=== PATIENT | female | born 1985 | race African-American/Black ===

== ENCOUNTER → 2018-12-24 | Outpatient (CLI) | payer OTHER ==
[2018-12-24 13:15] LABS: BASO # 0.1 10^3/uL (0.0-0.2); BASO % 0.7 % (0.0-1.0); EOS # 0.3 10^3/uL (0.0-0.50); EOS % 2.7 % (0.0-3.0); HEMATOCRIT 37.5 % (36.0-47.0); HEMOGLOBIN 12.5 g/dl (12.0-15.5); LYMPH # 1.8 10^3/uL (1.5-4.5); LYMPH % 17.1 % (24.0-44.0); MEAN CORPUSCULAR HEMOGLOBIN 30.6 pg (27.0-33.0); MEAN CORPUSCULAR HGB CONC 33.3 g/dl (32.0-36.5); MEAN CORPUSCULAR VOLUME 91.9 fl (80.0-96.0); MONO # 0.7 10^3/uL (0.0-0.8); MONO % 6.9 % (0.0-5.0); NEUTROPHILS # 7.4 10^3/uL (1.8-7.7); NEUTROPHILS % 72.1 % (36.0-66.0); PLATELET COUNT, AUTOMATED 295 10^3/uL (150-450); RED BLOOD COUNT 4.08 10^6/uL (4.00-5.40); WHITE BLOOD COUNT 10.2 10^3/uL (4.0-10.0)
[2018-12-24 13:59] LABS: HEPATITIS C VIRUS ABY INDEX 0.1 INDEX (<0.8); HIV 1&2 SCREEN CENTAUR NEGATIVE (NEGATIVE); RUBELLA IgG QUALITATIVE IMMUNE (IMMUNE)
[2018-12-24 15:00] LABS: CHLAMYDIA DNA AMPLIFICATION NEGATIVE (NEGATIVE); GC DNA AMPLIFICATION NEGATIVE (NEGATIVE)
== END ==
LOC: M SMT 09:50
PROVIDERS: ATTEND Obstetrics & Gynecology
DX: Z34.81 Encounter for supervision of other normal pregnancy, first trimester (principal); Z3A.00 Weeks of gestation of pregnancy not specified

== ENCOUNTER → 2019-01-22 | Outpatient (CLI) | payer OTHER | LOC: M SMT 13:20 | PROVIDERS: ATTEND Advanced Practice Midwife | DX: O09.511 Supervision of elderly primigravida, first trimester (principal) ==

== ENCOUNTER → 2019-03-04 | Outpatient (CLI) | payer OTHER ==
[~2019-03-04] MED LIST: NEXI20CA PO; PRENTAB9 PO; ZYRTTAB8 PO
--- NOTE | 2019-03-05 04:12 | REP ---
Clinical: Anatomical evaluation. Comparison: None . Findings: Examination demonstrates a single live intrauterine in breech presentation. motion is identified by technologist. Placenta is noted posterior and grade zero without evidence for placenta previa or abruption. Amniotic fluid volume is normal. Cervix measures 5.9 cm in length and appears closed. No evidence for nuchal cord. Gestational age by LMP 19 weeks 3 days with JEANNETTE 07/26/2019 . Gestational age by current measurements 19 weeks 2 day with JEANNETTE these 07/27/2019 . FHR equals 168 beats per minute. BPD 4.4 cm 19 weeks 2 days HC 16.5 cm 19 weeks 1 day AC 13.6 cm 19 weeks 0 days FL 3.1 cm 19 weeks 3 days HL 3.0 cm 19 weeks 5 days HC/AC ratio 1.21 Estimated weight 281 grams ( 40th percentile). Anatomical assessment demonstrates normal structures including cranium, choroid plexus, cavum, cerebellum/posterior fossa, facial features, lungs, four-chamber heart/ventricular outflow tracts, diaphragm, stomach, cord insertion/three-vessel cord, kidneys/bladder, spine, and extremities. Impression: Single live intrauterine in breech presentation demonstrating appropriate interval growth. Anatomical assessment is complete and normal. No gross abnormalities are identified. Electronically Signed by Vinicius Winters MD 03/05/2019 04:03 A
== END ==
LOC: M RAD 11:27
PROVIDERS: ATTEND Advanced Practice Midwife
DX: O09.512 Supervision of elderly primigravida, second trimester (principal); Z3A.19 19 weeks gestation of pregnancy

== ENCOUNTER → 2019-04-22 | Outpatient (CLI) | payer OTHER ==
[2019-04-22 13:50] LABS: HEMATOCRIT 34.7 % (36.0-47.0); HEMOGLOBIN 11.3 g/dl (12.0-15.5); MEAN CORPUSCULAR HEMOGLOBIN 31.1 pg (27.0-33.0); MEAN CORPUSCULAR HGB CONC 32.6 g/dl (32.0-36.5); MEAN CORPUSCULAR VOLUME 95.6 fl (80.0-96.0); PLATELET COUNT, AUTOMATED 293 10^3/uL (150-450); RED BLOOD COUNT 3.63 10^6/uL (4.00-5.40); WHITE BLOOD COUNT 13.5 10^3/uL (4.0-10.0)
== END ==
LOC: M SMT 09:14
PROVIDERS: ATTEND Advanced Practice Midwife
DX: O09.512 Supervision of elderly primigravida, second trimester (principal); Z3A.00 Weeks of gestation of pregnancy not specified

== ENCOUNTER → 2019-04-26 | Outpatient (CLI) | payer OTHER | LOC: M LAB 07:57 | PROVIDERS: ATTEND Advanced Practice Midwife | DX: R73.02 Impaired glucose tolerance (oral) (principal) ==

== ENCOUNTER → 2019-06-24 | Outpatient (REF) | payer OTHER | LOC: M SFHCWAGY 13:09 | PROVIDERS: ATTEND Advanced Practice Midwife | DX: Z3A.35 35 weeks gestation of pregnancy (principal) ==

== ENCOUNTER 2019-07-14 12:25 | Outpatient (CLI) | payer OTHER ==
[~2019-07-14] VITALS: Ht 162.6 cm; Wt 83.5 kg
[2019-07-14 12:46] VITALS: BP 123/73
[2019-07-14] MEDS ORDERED: ZYRTTAB8 PO (12:58)
[2019-07-14] MEDS ORDERED: PRENTAB9 PO (12:58)
[2019-07-14] MEDS ORDERED: NEXI20CA PO (12:58)
[2019-07-14 13:44] VITALS: BP 112/76
[2019-07-14 16:18] VITALS: BP 120/67
[2019-07-14 17:31] VITALS: BP 119/81
== END 2019-07-14 17:51 | disposition home or self-care (01) ==
LOC: M LDO 12:25
PROVIDERS: ATTEND Obstetrics & Gynecology
DX: O26.893 Other specified pregnancy related conditions, third trimester (principal); R10.30 Lower abdominal pain, unspecified; O47.1 False labor at or after 37 completed weeks of gestation; Z3A.38 38 weeks gestation of pregnancy
CPT/HCPCS: 59025; G0378; G0463

== ENCOUNTER 2019-07-14 22:55 | Inpatient (IN) | payer OTHER ==
[~2019-07-14] VITALS: Ht 162.6 cm; Wt 83.5 kg
[2019-07-14 23:11] VITALS: BP 113/65
[2019-07-14] MEDS ORDERED: LACTATED RINGER'S 1000 ML IV STA (23:43)
[2019-07-15] VITALS (44 sets, daily range): BP systolic 79–137; BP diastolic 43–83
[2019-07-15] MEDS ORDERED: FENTANYL 2MCG/ML ROPIVACAINE 0.2% IN 0.9% NACL 100ML IVBAG As Ordered ONE (00:19)
[2019-07-15 00:25] LABS: HEMATOCRIT 38.9 % (36.0-47.0); HEMOGLOBIN 13.4 g/dl (12.0-15.5); MEAN CORPUSCULAR HEMOGLOBIN 31.4 pg (27.0-33.0); MEAN CORPUSCULAR HGB CONC 34.4 g/dl (32.0-36.5); MEAN CORPUSCULAR VOLUME 91.1 fl (80.0-96.0); PLATELET COUNT, AUTOMATED 256 10^3/uL (150-450); RED BLOOD COUNT 4.27 10^6/uL (4.00-5.40); WHITE BLOOD COUNT 14.2 10^3/uL (4.0-10.0)
[2019-07-15] MEDS: LR 1,000 ML IV SCH ×3 (00:34→05:32)
[2019-07-15] MEDS ORDERED: ONDANSETRON 4MG/2ML VIAL (J2405) IV PRN (01:45)
[2019-07-15] MEDS ORDERED: FENTANYL/ROPIVACAINE/NACL BAG 100 ML EPIDURAL SCH (01:45)
[2019-07-15] MEDS ORDERED: EPIDURAL COMMENT XX SCH (01:45)
[2019-07-15] MEDS ORDERED: EPIDURAL/PCA KEYS XX PRN (01:45)
[2019-07-15] MEDS ORDERED: NALOXONE INJ 0.4 MG/1 ML VIAL (J2310) IV PRN (01:45)
[2019-07-15] MEDS ORDERED: diphenhydrAMINE INJ 50MG/ML VIAL (J1200) IV PRN (01:45)
[2019-07-15] MEDS ORDERED: REFRIGERATOR IV KEYS XX PRN (01:45)
--- NOTE | 2019-07-15 02:13 | HPEPDOC ---
Obstetrical History & Physical General Date of Admission Jul 14, 2019 at 23:44 History of Present Illness Mrs. Terrazas is a 34-year-old 1 at 38 weeks 3 days estimated gestational age by last menstrual period, confirmed by first trimester ultrasound who presents with complaints of contractions. Reports active movements. Denies any vaginal bleeding or leakage of fluid. Her course is unremarkable. She initiated care in her first trimesters and has been appropriate throughout Chief Complaint: Contractions, term Information Provided By: Patient Age: 34 : 1 Care Care: Good Care Dating Final EDC: Jul 26, 2019 Final EDC for Daily Update: Jul 26, 2019 LMP: Oct 19, 2018 1st Trimester Date: Jul 15, 2019 Estimated Date of Confinement: Jul 15, 2019 EGA at Admission: 38 Past Medical History Past Obstetrical History : Past Obstetrical History: Primgravida [employer] History: No pertinent history Past Medical History Medical History Asthma Surgical History: Denies/None Family History Significant Family History: No pertinent family hx Social History Marital Status: Psychosocial History: No pertinent psych hx * Smoker: non-smoker Alcohol: Denies Drugs: denies Allergies Coded Allergies: shellfish derived (Verified Allergy, Mild, Itching to mouth and lips, 07/14/19) Medications Scheduled Esomeprazole Magnesium (Nexium) 20 Mg Capsule.dr, 1 CAP PO DAILY No.137/Iron/Folic Acd ( Vitamin Tablet) 1 Each Tablet, 1 TAB PO DAILY Miscellaneous Medications Cetirizine HCl/Pseudoephedrine (Zyrtec-D Tablet) 1 Each Tab.er.12h, 1 TAB PO Physical Examination Physical Examination GENERAL: Alert and oriented times three. BREAST: . ABDOMEN: Gravid and non-tender to touch. FETUS: Is vertex (VTX) by sterile vaginal examination (SVE), fetus is vertex (VTX) by Fritz. HEART RATE: Regular rate and rhythm. LUNGS: Clear to auscultation (CTA). Vital Signs/I&O Vital Signs Date Time Temp Pulse Resp B/P (MAP) Pulse Ox O2 Delivery O2 Flow Rate FiO2 07/14/19 23:11 98.7 93 113/65 (81) 18 Laboratory Data 24H LABS Laboratory Tests 2 07/14/19 23:53: Serology Scanned Report Hepatitis B Testing 07/15/19 00:06: Nucleated Red Blood Cells % (auto) 0.0 CBC/BMP Laboratory Tests 07/15/19 00:06 Pertinent Laboratoy Data Blood Type: O+ RBC Antibody Screen: Negative HIV: Negative Hepatitis B: Negative Hepatitis C: Negative Rapid Plasma Reagin: Nonreactive Rubella: Immune Chlamydia/Gonorrhea: Negative Group B Streptococcus: Negative Anatomy Ultrasound Placenta Location: Posterior Normal Anatomy: Yes Placenta Previa: No Steroid Therapy Steroid Therapy: No Vaginal Examination Dilation: 6 cm Effacement: 90% Station: -2 Presentation: Cephalic presentation Assessment Variability: Moderate Accelerations: Positive Tocometer Contractions: Yes Frequency: regular Assessment/Plan Assessment 34-year-old 1 at 38 weeks 3 days gestational age in active labor. Reassuring status Plan Admit and orient. Leasing Specialist and consent. Group B Streptococcus (GBS) negative. Labs and intravenous (IV) per unit protocol. Anticipate normal spontaneous delivery (). C-S as appropriate. VAHID KOCH MD. Jul 15, 2019 02:13
[2019-07-15] MEDS: ePHEDrine SULFATE 25 MG/5 ML(5MG/ML) SYRINGE IV PRN ×6 (03:23→05:00)
[2019-07-15] MEDS: LACTATED RINGER'S 1000 ML IV PRN ×2 (03:25→04:31)
[2019-07-15] MEDS ORDERED: ePHEDrine SULFATE 25 MG/5 ML(5MG/ML) SYRINGE IV PRN (05:15)
[2019-07-15] MEDS ORDERED: OXYTOCIN 30 UNITS IN 0.9% NaCl 500ML IV BAG (J2590) As Ordered ONE (05:53)
[2019-07-15] MEDS ORDERED: MOM 30ML SUSPENSION UDC PO PRN (08:00)
[2019-07-15] MEDS ORDERED: IBUPROFEN 600 MG TAB PO PRN (08:00)
[2019-07-15] MEDS ORDERED: DIBUCAINE 1% OINTMENT 30GM TOP PRN (08:00)
[2019-07-15] MEDS ORDERED: RHOGAM 300 MCG (1500 IU) INJ (J2790) IM SCH (08:00)
[2019-07-15] MEDS ORDERED: MEASLES,MUMPS,RUBELLA VACCINE INJ (MMR-II) (90707) SC SCH (08:00)
[2019-07-15] MEDS ORDERED: ACETAMINOPHEN TAB 650MG DOSE (2X325MG) PO PRN (08:00)
[2019-07-15] MEDS ORDERED: ACETAMINOPHEN 500 MG TAB PO PRN (08:00)
[2019-07-15] MEDS ORDERED: ANUSOL HC CREAM 30GM TOP PRN (08:00)
[2019-07-15] MEDS ORDERED: DOCUSATE SODIUM 100 MG CAP PO PRN (08:00)
[2019-07-15] MEDS ORDERED: LIDOCAINE 1% MDV 20ML VIAL INFIL ONE (08:00)
[2019-07-15] MEDS ORDERED: OXYTOCIN DRIP 30 UNITS in IV 1 EA IV SCH (08:00)
[2019-07-15] MEDS ORDERED: METHYLERGONOVINE MALEATE 0.2 MG TAB PO PRN (08:00)
--- NOTE | 2019-07-15 08:13 | DNPDOC ---
[facility] Delivery Note Delivery Note DATE OF DELIVERY: 07/15/2019 PREDELIVERY DIAGNOSIS: 38-. 3/7 weeks' gestation and labor. POST DELIVERY DIAGNOSIS: Delivered. PROCEDURE: Spontaneous vaginal delivery. SPECTRAL SCIENTIST: Dr. Ray TIME OF : 719 GENDER:, Female. APGARS: 8 and 9. WEIGHT: 3250 grams or 7 pounds 3 ounces. LACERATIONS: First-degree midline laceration ANESTHESIA: Epidural and local lidocaine COUNTS: 5 laparotomy sponges accounted for prior to after delivery. 3 sharps removed delivery field. DELIVERY NOTE: 07/15/2019, Mrs. Terrazas is a 34-year-old 1, now para 1, had a spontaneous vaginal delivery of viable female , Apgars, 9 and 9. Weight was 3250 g or 7 lbs. 3 oz. Head was delivered [occiput anterior (OA). Nuchal cord x2 was manually reduced followed by delivery of the shoulders and corpus. Infant was handed to mom with a good cry. Cord was clamped times two and was cut by the father of baby under my direction. Placenta was then drained and delivered grossly intact. A premixed bag of 500 mL of normal saline with 30 units of Pitocin was then bolused along with uterine massage until the uterus was firm. On inspection,. There was a second-degree midline laceration which was repaired with 3-0 Vicryl. On reinspection, cervix, vagina, perineum was grossly intact and hemostatic. Mom and baby in recovery on stable condition. The couples decided to remain in daughter , Marija VAHID Machado MD. Jul 15, 2019 08:13
[2019-07-15] MEDS: OMEPRAZOLE 20 MG CAP PO SCH (13:14)
[2019-07-15] MEDS: CETIRIZINE (ZyrTEC) 10 MG TAB PO SCH (13:14)
[2019-07-15] MEDS: IBUPROFEN 800 MG TAB PO PRN ×2 (13:55→22:13)
[2019-07-16 06:48] VITALS: BP 104/57
[2019-07-16] MEDS: OMEPRAZOLE 20 MG CAP PO SCH (08:11)
[2019-07-16] MEDS: IBUPROFEN 800 MG TAB PO PRN ×2 (08:11→20:30)
[2019-07-16] MEDS: PRENATAL VITAMINS CHEWABLE TABLET PO SCH (08:11)
[2019-07-16] MEDS: CETIRIZINE (ZyrTEC) 10 MG TAB PO SCH (08:11)
--- NOTE | 2019-07-16 08:29 | IPNPDOC ---
Progress Note Date of Service: Jul 16, 2019 Day#: 1 Progress Note SUBJECT: Patient reports she is doing well. She states she has some vaginal/re ctal pressure but declines a vaginal check/exam. Reports she is breast feeding without difficulty. Baby is in the NICU. Desires to stay 1 more night. OBJECTIVE: VITAL SIGNS: Within normal limits, afebrile. Alert and oriented times three. Breath sounds clear to auscultation. Heart rate: Regular rate and rhythm, no murmurs, rubs or gallops. Abdomen: Fundus firm at U-1. Soft, NTTP. Moderate amount of lochia. ASSESSMENT: Day 1 PLAN: 1. Continue supportive nursing care. Anticipate discharge to home tomorrow. VS, I&O, 24H, Fishbone Vital Signs/I&O Vital Signs Date Time Temp Pulse Resp B/P (MAP) Pulse Ox O2 Delivery O2 Flow Rate FiO2 07/16/19 06:48 98.9 84 18 104/57 (73) 07/15/19 10:54 98 I&O- Last 24 Hours up to 6 AM 07/16/19 05:59 Intake Total 2756 ml Output Total 900 ml Balance 1856 ml MAGALYS SIMMONS CNM Jul 16, 2019 08:29
[2019-07-16] MEDS: DOCUSATE SODIUM 100 MG CAP PO SCH ×2 (08:59→20:30)
[2019-07-16 18:54] VITALS: BP 115/58
[2019-07-17 05:58] VITALS: BP 107/54
--- NOTE | 2019-07-17 07:53 | IPNPDOC ---
Progress Note Date of Service: Jul 17, 2019 Day#: 2 Progress Note SUBJECT: Genna is a 34-year-old 1 now Para 1-0-0-1 status post uncompl icated spontaneous vaginal delivery at 38-3/7 weeks' at approximately 0720 hours on 07/15/2019 of a female 7 pounds 3 ounces (3250 grams) with post vaginal laceration and repair, doing well day # 2. She has been ambulating, voiding spontaneously without issue and tolerating regular diet. Breast feeding without issue. Reports lochia is [like a normal period]. Patient is ambulating well. [Reports some cramping with . Denies any pain. Voiding and stooling without difficulty]. OBJECTIVE: VITAL SIGNS: Within normal limits, afebrile. Alert and oriented times three. Breath sounds clear to auscultation. Heart rate: Regular rate and rhythm, no murmurs, rubs or gallops. Abdomen: Fundus firm at U-2. Soft, NTTP. [Minimal] lochia. ASSESSMENT: Genna is a 34-year-old 1 now Para 1-0-0-1 status post uncomplicated spontaneous vaginal delivery after presenting in active labor with spontaneous rupture of membranes (SROM), delivered at 0720 hours and 38-3/7 weeks', doing well on day 2. Vitals within normal limits, afebrile, hemodynamically stable with no evidence of infection. PLAN: Discharge home today. Patient will follow-up in 6 weeks. Discussed return precautions at length. VS, I&O, 24H, Fishbone Vital Signs/I&O Vital Signs Date Time Temp Pulse Resp B/P (MAP) Pulse Ox O2 Delivery O2 Flow Rate FiO2 07/17/19 05:58 98.9 81 16 107/54 (71) 07/15/19 10:54 98 GME ATTESTATION GME ATTESTATION My faculty preceptor for this patient encounter was physically present during the encounter and was fully available. All aspects of the patient interview, examination, medical decision making process, and medical care plan development were reviewed and approved by the faculty preceptor. The faculty preceptor is aware and concurs with the plan as stated in the body of this note and will attest to such by his/her cosignature. FABY STONE DO Jul 17, 2019 07:53
[2019-07-17] MEDS: DOCUSATE SODIUM 100 MG CAP PO SCH (08:55)
[2019-07-17] MEDS: PRENATAL VITAMINS CHEWABLE TABLET PO SCH (08:55)
[2019-07-17] MEDS: CETIRIZINE (ZyrTEC) 10 MG TAB PO SCH (08:55)
[2019-07-17] MEDS: OMEPRAZOLE 20 MG CAP PO SCH (08:55)
[2019-07-17] MEDS: IBUPROFEN 800 MG TAB PO PRN (08:56)
== END 2019-07-17 09:03 | disposition home or self-care (01) | DRG 807 ==
LOC: M LDO 22:55 → M LDI 23:44 → M OBS 07-15 10:27
PROVIDERS: ADMIT Obstetrics & Gynecology; ATTEND Obstetrics & Gynecology
PROC: 10E0XZZ Delivery of Products of Conception, External Approach (ICD-10-PCS; principal; 2019-07-15)
PROC: 0KQM0ZZ Repair Perineum Muscle, Open Approach (ICD-10-PCS; 2019-07-15)
DX: O69.81X0 Labor and delivery complicated by cord around neck, without compression, not applicable or unspecified (principal); Z37.0 Single live birth; Z3A.38 38 weeks gestation of pregnancy; O70.1 Second degree perineal laceration during delivery

== ENCOUNTER → 2020-09-21 | Outpatient (REF) | payer OTHER | LOC: M SFHCWAGY 18:41 | PROVIDERS: ATTEND Obstetrics & Gynecology | DX: Z01.419 Encounter for gynecological examination (general) (routine) without abnormal findings (principal) ==

== ENCOUNTER → 2021-05-28 | Outpatient (CLI) | payer OTHER ==
[2021-05-28 11:25] LABS: BASO # 0.1 10^3/uL (0.0-0.2); BASO % 0.5 % (0.0-1.0); EOS # 0.3 10^3/uL (0.0-0.5); EOS % 2.5 % (0.0-3.0); HEMATOCRIT 37.5 % (36.0-47.0); HEMOGLOBIN 12.7 g/dl (12.0-15.5); LYMPH # 1.7 10^3/uL (1.5-5.0); LYMPH % 16.9 % (24.0-44.0); MEAN CORPUSCULAR HEMOGLOBIN 30.6 pg (27.0-33.0); MEAN CORPUSCULAR HGB CONC 33.9 g/dl (32.0-36.5); MEAN CORPUSCULAR VOLUME 90.4 fl (80.0-96.0); MONO # 0.5 10^3/uL (0.0-0.8); NEUTROPHILS # 7.6 10^3/uL (1.5-8.5); NEUTROPHILS % 74.6 % (36.0-66.0); PLATELET COUNT, AUTOMATED 279 10^3/uL (150-450); RED BLOOD COUNT 4.15 10^6/uL (4.00-5.40); WHITE BLOOD COUNT 10.2 10^3/uL (4.0-10.0)
[2021-05-28 12:37] LABS: GC DNA AMPLIFICATION NEGATIVE (NEGATIVE)
[2021-05-28 12:38] LABS: HEPATITIS C VIRUS ABY INDEX 0.1 INDEX (<0.8); HIV 1&2 SCREEN CENTAUR NEGATIVE (NEGATIVE)
== END ==
LOC: M PLALAB 08:54
PROVIDERS: ATTEND Obstetrics & Gynecology
DX: O09.529 Supervision of elderly multigravida, unspecified trimester (principal)

== ENCOUNTER → 2021-09-03 | Outpatient (CLI) | payer OTHER ==
[2021-09-03 13:29] LABS: HEMOGLOBIN 11.3 g/dl (12.0-15.5); MEAN CORPUSCULAR HGB CONC 33.2 g/dl (32.0-36.5); MEAN CORPUSCULAR VOLUME 93.2 fl (80.0-96.0); PLATELET COUNT, AUTOMATED 267 10^3/uL (150-450); RED BLOOD COUNT 3.65 10^6/uL (4.00-5.40); WHITE BLOOD COUNT 11.9 10^3/uL (4.0-10.0)
[2021-09-03 15:05] LABS: GC DNA AMPLIFICATION NEGATIVE (NEGATIVE)
== END ==
LOC: M PLALAB 08:11
PROVIDERS: ATTEND Obstetrics & Gynecology
DX: Z34.92 Encounter for supervision of normal pregnancy, unspecified, second trimester (principal); Z3A.00 Weeks of gestation of pregnancy not specified

== ENCOUNTER → 2021-11-08 | Outpatient (REF) | payer OTHER | LOC: M SFHCWAGY 13:07 | PROVIDERS: ATTEND Specialist | DX: Z34.83 Encounter for supervision of other normal pregnancy, third trimester (principal) ==

== ENCOUNTER 2021-11-23 07:04 | Inpatient (IN) | payer OTHER ==
[2021-11-23] VITALS (10 sets, daily range): BP systolic 103–122; BP diastolic 52–73
[~2021-11-23] VITALS: Ht 162.6 cm; Wt 78.3 kg
[2021-11-23] MEDS ORDERED: LACTATED RINGER'S 1000 ML IV STA (07:29)
[2021-11-23] MEDS ORDERED: METHYLERGONOVINE MALEATE 0.2 MG/ML VIAL (J2210) IM PRN (07:30)
[2021-11-23] MEDS ORDERED: LR 1,000 ML IV SCH (07:30)
[2021-11-23] MEDS ORDERED: TRANEXAMIC ACID INJection 1,000 MG in NS 100 ML IV PRN (07:30)
[2021-11-23] MEDS ORDERED: LIDOCAINE 1% MDV 20ML VIAL INFIL PRN (07:30)
[2021-11-23] MEDS ORDERED: OXYTOCIN DRIP 30 UNITS in IV 1 EA IV PRN (07:30)
[2021-11-23] MEDS ORDERED: HOME MED LIST COMPLETE! XX SCH (08:20)
[2021-11-23 08:25] LABS: HEMATOCRIT 35.9 % (36.0-47.0); HEMOGLOBIN 12.3 g/dl (12.0-15.5); MEAN CORPUSCULAR HEMOGLOBIN 30.8 pg (27.0-33.0); MEAN CORPUSCULAR HGB CONC 34.3 g/dl (32.0-36.5); PLATELET COUNT, AUTOMATED 231 10^3/uL (150-450); RED BLOOD COUNT 3.99 10^6/uL (4.00-5.40); WHITE BLOOD COUNT 12.9 10^3/uL (4.0-10.0)
[2021-11-23] MEDS: PRENATAL VITAMINS CHEWABLE TABLET PO SCH (09:00)
[2021-11-23] MEDS ORDERED: ACETAMINOPHEN 500 MG TAB PO PRN (09:35)
[2021-11-23] MEDS ORDERED: MOM 30ML SUSPENSION UDC PO PRN (09:35)
[2021-11-23] MEDS ORDERED: OXYTOCIN DRIP 30 UNITS in IV 1 EA IV SCH (09:35)
[2021-11-23] MEDS ORDERED: MEASLES,MUMPS,RUBELLA VACCINE INJ (MMR-II) (90707) SC SCH (09:35)
[2021-11-23] MEDS ORDERED: RHOGAM 300 MCG (1500 IU) INJ (J2790) IM SCH (09:35)
[2021-11-23] MEDS ORDERED: DOCUSATE SODIUM 100MG CAPSULE PO PRN (09:35)
[2021-11-23] MEDS ORDERED: DIBUCAINE 1% OINTMENT 30GM TOP PRN (09:35)
[2021-11-23] MEDS ORDERED: ACETAMINOPHEN TAB 650MG DOSE (2X325MG) PO PRN (09:35)
[2021-11-23] MEDS ORDERED: IBUPROFEN 600MG TAB PO PRN (09:35)
[2021-11-23] MEDS ORDERED: KETOROLAC 30 MG/ML 1ML VIAL IV ONE (09:35)
[2021-11-23] MEDS ORDERED: METHYLERGONOVINE MALEATE 0.2 MG TAB PO PRN (09:35)
[2021-11-23 12:15] LABS: RSV AMPLIFICATION NEGATIVE (NEGATIVE)
[2021-11-23] MEDS: CETIRIZINE (ZyrTEC) 10 MG TAB PO SCH (17:00)
[2021-11-23] MEDS: IBUPROFEN 800 MG TAB PO PRN (17:00)
[2021-11-23] MEDS: FAMOTIDINE 20 MG TAB PO SCH (18:00)
[2021-11-24] MEDS: IBUPROFEN 800 MG TAB PO PRN ×2 (05:47→16:09)
[2021-11-24 06:00] VITALS: BP 107/58
[2021-11-24] MEDS: FAMOTIDINE 20 MG TAB PO SCH (09:22)
[2021-11-24] MEDS: PRENATAL VITAMINS CHEWABLE TABLET PO SCH (09:22)
[2021-11-24] MEDS: CETIRIZINE (ZyrTEC) 10 MG TAB PO SCH (09:22)
== END 2021-11-24 16:15 | disposition home or self-care (01) | DRG 807 ==
LOC: M LDO 07:04 → M LDI 07:23 → M OBS 11:39
PROVIDERS: ADMIT Advanced Practice Midwife; ATTEND Advanced Practice Midwife
PROC: 10E0XZZ Delivery of Products of Conception, External Approach (ICD-10-PCS; principal; 2021-11-23)
PROC: 0HQ9XZZ Repair Perineum Skin, External Approach (ICD-10-PCS; 2021-11-23)
DX: O70.0 First degree perineal laceration during delivery (principal); Z37.0 Single live birth; Z3A.39 39 weeks gestation of pregnancy; O09.523 Supervision of elderly multigravida, third trimester